=== PATIENT | male | born 1990 | race Caucasian/White ===

== ENCOUNTER 2017-09-21 10:11 | Emergency (ER) | payer SELFPAY ==
[2017-09-21] MEDS: KETOROLAC 30 MG INJ IV (11:32)
[2017-09-21] MEDS: METOCLOPRAMIDE 10 MG INJ IV (11:32)
[2017-09-21] MEDS: DIPHENHYDRAMINE 50 MG INJ IV (11:32)
== END 2017-09-21 14:36 | disposition home or self-care (01) ==
LOC: FTE 10:11
DX: R51 Headache (principal)
CPT/HCPCS: 70450; 96374; 96375; 99285-25